=== PATIENT | female | born 1930 | race African-American/Black ===

== ENCOUNTER 2019-03-15 18:11 | Emergency (ER) | payer OTHER ==
[~2019-03-15] VITALS: Ht 160 cm; Wt 54.0 kg
[2019-03-15 18:29] VITALS: BP_SYST 130
[2019-03-15 19:48] LABS: ANION GAP 6 (5-15); CALCIUM 8.8 mg/dL (8.4-11.0); CHLORIDE 106 mmol/L (98-107); CREATININE 1.08 mg/dL (0.55-1.30); GLUCOSE 97 mg/dL (70-99); POTASSIUM 4.6 mmol/L (3.5-5.1); SODIUM SERUM 138 mmol/L (136-145); UREA NITROGEN, BLOOD 21 mg/dL (8-21)
[2019-03-15 19:54] LABS: ALANINE AMINOTRANSFERASE 13 U/L (12-78); ASPARTATE AMINOTRANSFERASE 17 U/L (10-37); TOTAL BILIRUBIN 0.3 mg/dL (0.0-1.0)
[2019-03-15 19:56] LABS: BASOPHILS % (AUTO) 0.6 % (0.0-2.0); EOSINOPHILS # (AUTO) 0.2 K/uL (0.0-0.4); HEMATOCRIT 33.5 % (36-48); HEMOGLOBIN 11.1 g/dL (12.0-16.0); LYMPHOCYTES # (AUTO) 2.7 K/uL (1.0-5.5); LYMPHOCYTES % (AUTO) 46.4 % (20.5-51.5); MEAN CORPUSCULAR HEMOGLOBIN 31 pg (27-31); MEAN CORPUSCULAR HGB CONC 33 % (32-36); MEAN CORPUSCULAR VOLUME 94 fL (79.0-98.0); MONOCYTES # (AUTO) 0.6 K/uL (0.0-1.0); MONOCYTES % (AUTO) 9.6 % (1.7-9.3); NEUTROPHILS # (AUTO) 2.3 K/uL (1.8-7.7); NEUTROPHILS % (AUTO) 40.4 % (40.0-70.0); PLATELET COUNT (AUTO) 186 K/uL (130-430); RED BLOOD CELL COUNT(AUTO) 3.57 MIL/uL (4.2-6.2); RED CELL DISTRIBUTION WIDTH 14.7 % (9.0-15.0); WHITE BLOOD COUNT (AUTO) 5.7 K/uL (4.8-10.8)
[2019-03-15 19:57] LABS: ACETAMINOPHEN < 1 ug/mL (1-30); ALCOHOL, BLOOD < 3 mg/dL (<10)
[2019-03-15 20:23] LABS: PROTHROMBIN TIME 10.1 SECS (9.5-12.5)
[2019-03-15 22:47] LABS: BILIRUBIN,URINE NEGATIVE (NEGATIVE); CLARITY/URINE SL HAZY (CLEAR); COLOR,URINE YELLOW (YELLOW); GLUCOSE,URINE NEGATIVE (NEGATIVE); KETONES,URINE NEGATIVE (NEGATIVE); LEUKOCYTE ESTERASE ,URINE 1+ (NEGATIVE); NITRITE, URINE POSITIVE (NEGATIVE); PROTEIN URINE NEGATIVE (NEGATIVE); UROBILINOGEN,URINE 0.2 (0.2-1.0)
[2019-03-15 22:53] LABS: BLOOD, URINE TRACE (NEGATIVE)
[2019-03-15 22:59] LABS: RBC,URINE 0-3 /HPF (0-3)
[2019-03-15 23:00] LABS: BACTERIA,URINE MODERATE /HPF (None Seen)
[2019-03-15 23:03] LABS: BARBITURATE, URINE NEGATIVE (NEG <=200); BENZODIAZEPINE, URINE NEGATIVE (NEG <=150); CANNABINOID, URINE NEGATIVE (NEG <=50); COCAINE, URINE NEGATIVE (NEG <=150); METHAMPHETAMINES SCREEN,URINE NEGATIVE (NEG <=500); OPIATE, URINE NEGATIVE (NEG <=100); PHENCYCLIDINE SCREEN,URINE NEGATIVE (NEG <=25); UR TRICYCLIC ANTIDEPRESSANTS NEGATIVE (NEG <=300); URINE AMPHETAMINE NEGATIVE (NEG <=500); URINE METHADONE NEGATIVE (NEG <=200); URINE OXYCODONE SCREEN NEGATIVE (NEG <=100); URINE PROPOXYPHENE SCREEN NEGATIVE (NEG <=300)
[2019-03-15] MEDS ORDERED: cefTRIAXone 0.75 GM in LIDOCAINE 1%, 20 ML MDV 2.1 ML IM ONE (23:30)
[2019-03-16 00:05] VITALS: BP_SYST 136
== END 2019-03-16 00:05 ==
LOC: SED 18:11
DX: F32.9 Major depressive disorder, single episode, unspecified (principal); F98.9 Unspecified behavioral and emotional disorders with onset usually occurring in childhood and adolescence; N39.0 Urinary tract infection, site not specified; D64.9 Anemia, unspecified
CPT/HCPCS: 36415; 80053; 80307; 81000; 85025; 85610; 85730; 87081; 87086; 87186; 96372; 99285; G0480; G0481; G0482; J0696; J2001